=== PATIENT | male | born 1950 | race Caucasian/White ===

== ENCOUNTER 2017-01-13 13:36 | Emergency (ER) | payer BC ==
[2017-01-13 13:41] VITALS: BP 128/76
[2017-01-13] MEDS ORDERED: DOXYcycline CAP(*) 100 MG PO ONE (14:16)
--- NOTE | 2017-01-13 14:24 | UC ---
General HPI - HPI Summary HPI Summary: PATIENT REMOVED TICK FROM RIGHT BACK ONE HOUR [employer]. BELIEVES TICK HAS BEEN THERE FOR ONE DAY. NO FEVER. NO RASH. NO JOINT PAIN. NO HEADACHES. - History of Current Complaint Chief Complaint: Candice Stated Complaint: TICK BITE Time Seen by Provider: 01/13/17 13:47 Hx Obtained From: Patient Onset/Duration: Sudden Onset, Resolved Onset Severity: Mild Current Severity: Mild Associated Signs & Symptoms: Negative: Cough, Dizziness, Diarrhea, Dysuria, Fever, Headache, Trauma, Weakness - Allergy/Home Medications Allergies/Adverse Reactions: Allergies Allergy/AdvReac Type Severity Reaction Status Date / Time No Known Allergies Allergy Verified 04/07/14 09:20 PMH/Surg Hx/FS Hx/Imm Hx Previously Healthy: Yes - Surgical History Surgical History: Yes Surgery Procedure, Year, and Place: rt arm tendopn repair 1997 - Family History Known Family History: Positive: None, Diabetes - Pre-diabetes in brother Negative: Hypertension, Respiratory Disease - Social History Occupation: Employed Full-time Lives: With Family Alcohol Use: None Substance Use Type: None Smoking Status (MU): Never Smoked Tobacco Review of Systems Constitutional: Negative Skin: Rash Eyes: Negative ENT: Negative Respiratory: Negative Cardiovascular: Negative Gastrointestinal: Negative Genitourinary: Negative Motor: Negative Neurovascular: Negative Musculoskeletal: Negative Neurological: Negative Psychological: Negative Is Patient Immunocompromised?: No All Other Systems Reviewed And Are Negative: Yes Physical Exam Triage Information Reviewed: Yes Appearance: Well-Appearing, No Pain Distress, Well-Nourished Vital Signs: Initial Vital Signs Temp 98.2 F 01/13/17 13:39 Pulse 72 01/13/17 13:39 Resp 18 01/13/17 13:39 BP 128/76 01/13/17 13:39 Pulse Ox 98 01/13/17 13:39 Vital Signs Reviewed: Yes Eye Exam: Normal ENT Exam: Normal Dental Exam: Normal Neck exam: Normal Neck: Positive: Supple, Nontender, No Lymphadenopathy Respiratory Exam: Normal Respiratory: Positive: Chest non-tender, Lungs clear, Normal breath sounds, No respiratory distress, No accessory muscle use Cardiovascular Exam: Normal Cardiovascular: Positive: RRR, No Murmur, Pulses Normal Abdominal Exam: Normal Musculoskeletal Exam: Normal Musculoskeletal: Positive: Strength Intact, ROM Intact Neurological Exam: Normal Psychological Exam: Normal Skin: Positive: rashes - 0.3CM X 0.3 CM ERRETHEMATOUS CIRCULAR RASH WHERE TICK HAD BEEN EMBEDDED Course/Dx - Differential Dx - Multi-Symptom Differential Diagnoses: Metabolic Abnormality, Sepsis Provider Diagnoses: TICK BITE PROPHYLAXIS Discharge - Discharge Plan Condition: Stable Disposition: HOME Patient Education Materials: Lyme Disease (ED), Tick Bite (ED) Referrals: Edwin Kinsey MD [Primary Care Provider] - Images Front/Back of Body, Lg ([place]): 1 - 0.3CM X 0.3 CM ERRETHEMATOUS CIRCULAR RASH WHERE TICK HAD BEEN EMBEDDED
== END 2017-01-13 14:36 | disposition home or self-care (01) ==
LOC: UCEAST 13:36
DX: S20.469A Insect bite (nonvenomous) of unspecified back wall of thorax, initial encounter (principal); W57.XXXA Bitten or stung by nonvenomous insect and other nonvenomous arthropods, initial encounter; Y92.9 Unspecified place or not applicable
CPT/HCPCS: 99212; A9270-GY; G0463